=== PATIENT | female | born 1940 | race Caucasian/White ===

== ENCOUNTER 2017-01-07 13:20 | Emergency (ER) | payer MEDICARE, OTHER ==
[~2017-01-07] VITALS: Ht 152.4 cm; Wt 70.5 kg
[2017-01-07 13:24] VITALS: Ht 152.4 cm; Wt 70.5 kg
== END 2017-01-07 20:49 | disposition left against medical advice (07) ==
LOC: E/R 13:20
DX: Z53.21 Procedure and treatment not carried out due to patient leaving prior to being seen by health care provider (principal)